=== PATIENT | male | born 1965 | race Two or more races ===

== ENCOUNTER → 2024-11-29 | Outpatient (CLI) | payer BC, SELFPAY ==
--- NOTE | 2024-11-29 07:25 | XR_ITS ---
Examination: Abdomen sonogram, complete Date and time of exam: November 29, 2024, 0731 hours INDICATIONS: Right upper abdominal pain epigastric pain beginning 3 weeks ago. Technique: Multiple real-time grayscale transabdominal sonographic images of the abdomen have been obtained. Findings: Normal gallbladder. Normal common bile duct 0.3 cm Pancreatic head 3.3 cm Aorta not enlarged. Liver 15.2 cm fatty liver Normal hepatopedal portal venous O Patent IVC Right kidney 11.0 cm renal cortex 1.6 cm Left kidney 9.2 cm renal cortex 1.4 cm Moderate bilateral renal parenchymal scar formation Spleen 9.0 cm IMPRESSION: Normal gallbladder Fatty liver
== END | disposition home or self-care (01) ==
LOC: CDIM 07:11
PROVIDERS: PCP Registered Nurse Community Health; Referring Provider Registered Nurse Community Health; Visit Provider Registered Nurse Community Health
DX: K76.0 Fatty (change of) liver, not elsewhere classified (principal)
CPT/HCPCS: 76700